=== PATIENT | female | born 1970 | race African-American/Black ===

== ENCOUNTER 2016-12-10 09:56 | Emergency (ER) | payer SELFPAY ==
[~2016-12-10] VITALS: Ht 160 cm; Wt 87.4 kg
[~2016-12-10 09:56] MED LIST: ALBU8.5H5 INH; EPIN0.3P3 SQ; FLUT1DIS3 INH; METH500T97 PO; RANI75TA12 PO
[2016-12-10 10:03] VITALS: BP 130/88
[2016-12-10] MEDS ORDERED: LIDOCAINE 1%, 20ML SQ ONE (10:30)
[2016-12-10] MEDS ORDERED: LIDOCAINE 1%, 20ML ONE (11:32)
== END 2016-12-10 12:32 | disposition home or self-care (01) ==
LOC: ED 12:10
DX: N90.89 Other specified noninflammatory disorders of vulva and perineum (principal); R21 Rash and other nonspecific skin eruption; J45.909 Unspecified asthma, uncomplicated; Z88.0 Allergy status to penicillin; Z88.8 Allergy status to other drugs, medicaments and biological substances
CPT/HCPCS: 99281

== ENCOUNTER 2017-10-08 05:27 | Emergency (ER) | payer MEDICAID ==
[~2017-10-08] VITALS: Ht 160 cm; Wt 89.3 kg
[~2017-10-08 05:27] MED LIST changes: +ASPI-515 PO; +MOME13HF2 INH; +MONT10TA6 PO
[2017-10-08] MEDS ORDERED: ONDANSETRON ODT 4 MG ONE (05:57)
[2017-10-08 06:24] LABS: BASOPHILS # (AUTO) 0.07 x10^3/uL (0-0.1); BASOPHILS % (AUTO) 1 % (0-1); EOSINOPHILS # (AUTO) 0.66 x10^3/uL (0-0.4); EOSINOPHILS % (AUTO) 11 % (1-7); LYMPHOCYTES # (AUTO) 2.88 x10^3/uL (1-3.4); LYMPHOCYTES % (AUTO) 47 % (22-44); MD NO; MEAN CORPUSCULAR HEMOGLOBIN 26.1 pg (27.0-34.8); MEAN CORPUSCULAR HGB CONC 32.5 g/dL (32.4-35.8); MEAN CORPUSCULAR VOLUME 80.5 fL (80-100); MONOCYTES # (AUTO) 0.51 x10^3/uL (0.2-0.8); MONOCYTES % (AUTO) 8 % (2-9); NEUTROPHILS # (AUTO) 2.01 x10^3/uL (1.8-6.8); NEUTROPHILS % (AUTO) 33 % (42-75); PLATELET COUNT 372 x10^3/uL (130-400); RED BLOOD COUNT 4.52 x10^6/uL (3.82-5.3); RED CELL DISTRIBUTION WIDTH 16.7 % (9.6-15.2)
[2017-10-08 06:37] LABS: ALANINE AMINOTRANSFERASE 25 U/L (12-78); ALBUMIN 3.2 g/dL (3.4-5.0); ANION GAP 5 mmol/L (5-15); CALCIUM 8.3 mg/dL (8.5-10.1); CHLORIDE 108 mmol/L (98-107); CREATININE 0.99 mg/dL (0.55-1.02)
[2017-10-08 06:40] LABS: ALKALINE PHOSPHATASE 51 U/L (45-117); BILIRUBIN,TOTAL 0.5 mg/dL (0.2-1.0); TOTAL PROTEIN 7.6 g/dL (6.4-8.2)
[2017-10-08] MEDS ORDERED: ONDANSETRON ODT 4 MG PO ONE (07:00)
[2017-10-08 07:12] LABS: HCG UR SG 1.025 (1.003-1.030)
[2017-10-08 07:13] LABS: CULTURE INDICATED? NO; MICROSCOPIC NOT IND
[2017-10-08 07:30] VITALS: BP 131/90
== END 2017-10-08 07:47 | disposition home or self-care (01) ==
LOC: ED 07:43
DX: S39.011A Strain of muscle, fascia and tendon of abdomen, initial encounter (principal); R11.2 Nausea with vomiting, unspecified; R19.7 Diarrhea, unspecified; J45.909 Unspecified asthma, uncomplicated; G43.909 Migraine, unspecified, not intractable, without status migrainosus; Z86.73 Personal history of transient ischemic attack (TIA), and cerebral infarction without residual deficits; X58.XXXA Exposure to other specified factors, initial encounter; Y93.89 Activity, other specified; Y92.89 Other specified places as the place of occurrence of the external cause; Y99.8 Other external cause status
CPT/HCPCS: 36415; 80053; 81003; 81025; 85025; 99284; Q0162

== ENCOUNTER 2018-01-12 14:34 | Emergency (ER) | payer MEDICAID ==
[~2018-01-12] VITALS: Ht 160 cm; Wt 80.9 kg
[2018-01-12 16:05] LABS: ALBUMIN 3.5 g/dL (3.4-5.0); ANION GAP 8 mmol/L (5-15); CALCIUM 8.6 mg/dL (8.5-10.1); CHLORIDE 107 mmol/L (98-107)
[2018-01-12 16:10] LABS: CREATINE KINASE, TOTAL 448 U/L (26-192); CREATININE 1.02 mg/dL (0.55-1.02)
[2018-01-12 16:11] LABS: BASOPHILS # (AUTO) 0.16 x10^3/uL (0-0.1); BASOPHILS % (AUTO) 2 % (0-1); EOSINOPHILS # (AUTO) 0.65 x10^3/uL (0-0.4); EOSINOPHILS % (AUTO) 7 % (1-7); LYMPHOCYTES # (AUTO) 3.74 x10^3/uL (1-3.4); LYMPHOCYTES % (AUTO) 41 % (22-44); MD NO; MEAN CORPUSCULAR HEMOGLOBIN 26.3 pg (27.0-34.8); MEAN CORPUSCULAR VOLUME 82.3 fL (80-100); MEAN PLATELET VOLUME 8.5 fL (7.4-10.4); MONOCYTES # (AUTO) 0.67 x10^3/uL (0.2-0.8); MONOCYTES % (AUTO) 7 % (2-9); NEUTROPHILS # (AUTO) 3.81 x10^3/uL (1.8-6.8); NEUTROPHILS % (AUTO) 42 % (42-75); PLATELET COUNT 404 x10^3/uL (130-400); RED BLOOD COUNT 4.78 x10^6/uL (3.82-5.3); RED CELL DISTRIBUTION WIDTH 16.9 % (9.6-15.2)
[2018-01-12 17:43] VITALS: BP 144/84
== END 2018-01-12 17:46 | disposition home or self-care (01) ==
LOC: ED 17:05
DX: M25.562 Pain in left knee (principal); G43.909 Migraine, unspecified, not intractable, without status migrainosus; J45.909 Unspecified asthma, uncomplicated; Z86.73 Personal history of transient ischemic attack (TIA), and cerebral infarction without residual deficits; Z87.891 Personal history of nicotine dependence
CPT/HCPCS: 36415; 80048; 82040; 82550; 85025; 99285

== ENCOUNTER 2018-09-08 21:54 | Emergency (ER) | payer MEDICAID ==
[~2018-09-08] VITALS: Ht 160 cm; Wt 93.4 kg
--- NOTE | 2018-09-08 23:07 | NUR ---
PT. AMBULATORY TO ROOM FORM LOBBY AT THIS TIME.
[2018-09-08 23:18] LABS: BASOPHILS # (AUTO) 0.09 x10^3/uL (0-0.1); BASOPHILS % (AUTO) 1 % (0-1); EOSINOPHILS # (AUTO) 0.88 x10^3/uL (0-0.4); EOSINOPHILS % (AUTO) 10 % (1-7); LYMPHOCYTES # (AUTO) 3.83 x10^3/uL (1-3.4); LYMPHOCYTES % (AUTO) 42 % (22-44); MD NO; MEAN CORPUSCULAR HEMOGLOBIN 27.6 pg (27.0-34.8); MEAN CORPUSCULAR HGB CONC 33.1 g/dL (32.4-35.8); MEAN CORPUSCULAR VOLUME 83.4 fL (80-100); MEAN PLATELET VOLUME 8.2 fL (7.4-10.4); MONOCYTES # (AUTO) 0.55 x10^3/uL (0.2-0.8); MONOCYTES % (AUTO) 6 % (2-9); NEUTROPHILS # (AUTO) 3.72 x10^3/uL (1.8-6.8); NEUTROPHILS % (AUTO) 41 % (42-75); PLATELET COUNT 443 x10^3/uL (130-400); RED BLOOD COUNT 4.62 x10^6/uL (3.82-5.3); RED CELL DISTRIBUTION WIDTH 15.5 % (9.6-15.2)
--- NOTE | 2018-09-08 23:23 | NUR ---
DR. ARANDA WAS IN TO EVAL PT. AND DISCUSS POC WITH PT. PT. AMBULATORY TO BR WITH STEADY GAIT TO PROVIDE URINE SAMPLE.
[2018-09-08 23:30] LABS: ALBUMIN 3.4 g/dL (3.4-5.0); ANION GAP 7 mmol/L (5-15); CALCIUM 8.3 mg/dL (8.5-10.1); CHLORIDE 109 mmol/L (98-107)
[2018-09-08] MEDS ORDERED: KETOROLAC 60 MG/2 ML IM ONE (23:30)
[2018-09-08 23:36] LABS: ALANINE AMINOTRANSFERASE 27 U/L (12-78); ALKALINE PHOSPHATASE 74 U/L (45-117); BILIRUBIN,TOTAL 0.5 mg/dL (0.2-1.0); CREATININE 1.02 mg/dL (0.55-1.02)
[2018-09-08] MEDS ORDERED: KETOROLAC 30 MG/1 ML ONE (23:37)
[2018-09-08 23:57] LABS: MICROSCOPIC AUTO
[2018-09-08 23:58] LABS: CULTURE INDICATED? NO
--- NOTE | 2018-09-09 00:30 | NUR ---
RETURN FROM LUNCH AT THIS TIME; REPORT BACK FROM BREAK RN.
[2018-09-09 01:12] VITALS: BP 125/78
== END 2018-09-09 01:13 | disposition home or self-care (01) ==
LOC: ED 23:54
DX: R10.2 Pelvic and perineal pain (principal); J45.909 Unspecified asthma, uncomplicated; Z86.73 Personal history of transient ischemic attack (TIA), and cerebral infarction without residual deficits
CPT/HCPCS: 36415; 76830; 80053; 81001; 83690; 84703; 85025; 96372; 99284; J1885

== ENCOUNTER 2018-09-15 08:49 | Emergency (ER) | payer MEDICAID ==
[~2018-09-15] VITALS: Ht 160 cm; Wt 93.0 kg
--- NOTE | 2018-09-15 09:09 | NUR ---
PT PRESENTS TO ED WITH C/O MIGRAINE HEADACHE, STATES SHE WAS LAST IN ED FOR THIS COMPLAINT APPROX 2 MONTHS AGO, NO NEUROLOGY CARE AT THIS TIME. STATES 'MEDICATIONS AT HOME DON'T WORK FOR ME, I JUST COME TO THE ED.' REPORTS LIGHT SENSITIVITY, DENIES NAUSEA/VOMITING. EATING A BAGEL AND DRINKING COFFEE, STATES 'MY SISTER THOUGHT COFFEE MAY HELP, SO I AM TRYING THAT. LIGHTS DIMMED FOR COMFORT. AWAITING ERP ASSESSMENT.
[2018-09-15] MEDS ORDERED: METOCLOPRAMIDE 5 MG/ML, 2ML IVPush ONE (09:30)
[2018-09-15] MEDS ORDERED: KETOROLAC 30 MG/1 ML IVPush ONE (09:30)
[2018-09-15] MEDS ORDERED: DEXAMETHASONE 4 MG/ML, 1ML PO ONE (09:30)
[2018-09-15] MEDS ORDERED: KETOROLAC 30 MG/1 ML ONE (09:38)
[2018-09-15] MEDS ORDERED: DEXAMETHASONE 4 MG/ML, 5ML ONE (09:38)
[2018-09-15] MEDS ORDERED: METOCLOPRAMIDE 5 MG/ML, 2ML ONE (09:38)
--- NOTE | 2018-09-15 09:50 | NUR ---
PT MEDICATED ORDERED, WILL CONTINUE TO MONTIOR.
--- NOTE | 2018-09-15 10:00 | NUR ---
RECEIVED REPORT FROM ERNESTO Warner RN. PT RESTING IN BED IN NAD. PT JUST MEDICATED, WILL ASSESS EFFICACY OF MEDS.
[2018-09-15] MEDS ORDERED: HYDROcodone/APAP 5/325 TABLET ONE (11:18)
--- NOTE | 2018-09-15 11:25 | NUR ---
CHART UP FOR MD RECHECK.
[2018-09-15] MEDS ORDERED: HYDROcodone/APAP 5/325 TABLET PO ONE (11:30)
--- NOTE | 2018-09-15 11:33 | NUR ---
PT MEDICATED ORDERED. PT GIVEN PO NORCO. PT WAS SLEEPING PRIOR TO ADMINISTRATION. VSS.
[2018-09-15 12:00] VITALS: BP 130/87
== END 2018-09-15 12:03 | disposition home or self-care (01) ==
LOC: ED 10:08
DX: G43.019 Migraine without aura, intractable, without status migrainosus (principal); Z86.73 Personal history of transient ischemic attack (TIA), and cerebral infarction without residual deficits; J45.909 Unspecified asthma, uncomplicated
CPT/HCPCS: 96374; 96375; 99283; J1100; J1885; J2765